=== PATIENT | male | born 2000 | race Caucasian/White ===

== ENCOUNTER 2025-02-20 02:31 | Emergency (ER) | payer OTHER, MEDICAID ==
[~2025-02-20] VITALS: Ht 180.3 cm; Wt 84.0 kg
[2025-02-20 02:33] VITALS: O2SAT 97
[2025-02-20 04:45] LABS: BASOPHILS % 0.8 % (0.0-2.0); EOSINOPHILS % 1.7 % (0.0-5.0); HEMATOCRIT. 43.5 % (42.0-52.0); HEMOGLOBIN. 14.8 g/dL (14.0-18.0); LYMPHOCYTES % 30.7 % (20.0-50.0); MEAN CORPUSCULAR HEMOGLOBIN 30.2 pg (28.0-32.0); MEAN CORPUSCULAR VOLUME 88.6 fL (80.0-94.0); MEAN PLATELET VOLUME 7.6 fl (7.4-10.4); MONOCYTES % 11.2 % (2.0-8.0); NEUTROPHILS % 55.6 % (40.0-76.0); PLATELET 259 x1000/uL (130-400); RED BLOOD CELL COUNT 4.91 mill/uL (4.7-6.1); WHITE BLOOD COUNT 9.9 x1000/uL (4.5-11.0)
[2025-02-20 04:58] LABS: CHLORIDE 106 mEq/L (98-107); POTASSIUM 3.7 mEq/L (3.5-5.1); SODIUM 138 mEq/L (136-145)
[2025-02-20 04:59] LABS: CARBON DIOXIDE 26 mEq/L (21-32)
[2025-02-20 05:00] LABS: CALCIUM 9.1 mg/dL (8.7-10.4)
[2025-02-20 05:04] LABS: CREATININE 0.8 mg/dL (0.6-1.3); GLUCOSE 100 mg/dL (70-105); UREA NITROGEN BLOOD 9 mg/dL (9-23)
[2025-02-20 05:41] VITALS: BP 123/81; PULSE 64; RESP 14; TEMP 36.6; O2SAT 96
== END 2025-02-20 05:43 | disposition home or self-care (01) ==
LOC: ER 02:31
DX: R00.2 Palpitations (principal); Z88.0 Allergy status to penicillin
CPT/HCPCS: 36415; 80048; 85025; 99283